=== PATIENT | female | born 1955 | race Caucasian/White ===

== ENCOUNTER 2022-09-10 22:46 | Emergency (ER) | payer OTHER, MEDICAID ==
[~2022-09-10] VITALS: Ht 170.2 cm; Wt 90.0 kg
[2022-09-10 23:34] LABS: Hemoglobin 8.9 g/dL (12.2-16.2)
[2022-09-10 23:35] LABS: Basophils # (auto) 0.1 10 ^3/uL (0-0.2); Basophils % (auto) 1.1 % (0.0-2.0); Eosinophils # (auto) 0.1 10 ^3/uL (0-0.8); Hematocrit 29.6 % (36.0-46.0); Lymphocytes # (auto) 1.6 10 ^3/uL (0.4-5.4); Lymphocytes % (auto) 20.5 % (10.0-50.0); Mean Corpuscular Hemoglobin 21.8 pg (28.0-32.0); Mean Corpuscular Hgb Conc. 30.2 g/dL (32.0-36.0); Mean Corpuscular Volume 72.1 fL (80.0-100.0); Monocytes % (auto) 13.1 % (0.0-12.0); Neutrophils # (auto) 5.1 10 ^3/uL (1.6-8.6); Neutrophils % (auto) 64.3 % (37.0-80.0); White Blood Cell 7.9 10^3/uL (4.4-10.8)
[2022-09-10 23:38] LABS: Red Cell Distribution Width 23.3 % (11.8-14.3)
[2022-09-10 23:48] LABS: Albumin 2.8 g/dL (3.4-5.0); Calcium 8.5 mg/dL (8.5-10.1); Potassium 3.9 mmol/L (3.5-5.1)
[2022-09-10 23:50] LABS: BUN/Creatinine Ratio 20.5 (10.0-20.0); Bilirubin, Total 1.3 mg/dL (0.2-1.0); INR 1.22 (0.9-1.15); Partial Thromboplastin Time 26.4 sec (24.6-33.4); Total Protein 7.2 g/dL (6.4-8.2)
[2022-09-11] MEDS ORDERED: MORPHINE SULFATE 4 MG/ML SYR/VIAL IV ONE (02:30)
[2022-09-11] MEDS ORDERED: ONDANSETRON HCL 4 MG/2 ML VIAL IV ONE (02:30)
[2022-09-11] MEDS ORDERED: TETANUS-DIPTH-ACEL PERTUSSIS 0.5ML SYR Tdap IM ONE (02:30)
[2022-09-11 04:47] VITALS: BP 111/70
== END 2022-09-11 07:54 | disposition home or self-care (01) ==
LOC: ER 22:46 → EDBD 22:46 → ER 09-11 07:38
DX: S01.81XA Laceration without foreign body of other part of head, initial encounter (principal); I48.91 Unspecified atrial fibrillation; Z88.0 Allergy status to penicillin; Z88.8 Allergy status to other drugs, medicaments and biological substances; W18.49XA Other slipping, tripping and stumbling without falling, initial encounter; Y93.89 Activity, other specified; Y92.89 Other specified places as the place of occurrence of the external cause; Y99.8 Other external cause status
CPT/HCPCS: 12002; 12011; 36415; 70450; 71045; 72125; 80053; 84484; 85025; 85610; 85730; 90471; 90715; 93005; 96374; 96375; 99285; J2270; J2405